=== PATIENT | male | born 1960 | race Hispanic/Latino ===

== ENCOUNTER 2024-06-27 07:12 | Day surgery (SDC) | payer MEDICAID ==
[2024-06-25 08:49] VITALS: BP 152/77; PULSE 52; RESP 14; TEMP 98.2
[2024-06-25 09:14] LABS: BASOPHILS # (AUTO) 0.02 K/uL (0.00-0.20); BASOPHILS % (AUTO) 0.3 % (0.0-5.0); EOSINOPHILS # (AUTO) 0.13 K/uL (0.00-0.70); HEMATOCRIT 46.8 % (42-54); IMMATURE GRANULOCYTE ABSOLUTE 0.02 K/uL (0-1); LYMPHOCYTES # (AUTO) 1.6 K/uL (1.0-4.8); LYMPHOCYTES % (AUTO) 23.6 % (21.0-51.0); MEAN CORPUSCULAR HEMOGLOBIN 32.1 pg (27.0-33.0); MEAN CORPUSCULAR HGB CONC 34.2 g/dL (32.0-36.0); MEAN CORPUSCULAR VOLUME 93.8 fL (79-99); MONOCYTES # (AUTO) 0.7 K/uL (0.1-1.0); MONOCYTES % (AUTO) 10.2 % (3.0-13.0); NEUTROPHILS # (AUTO) 4.2 K/uL (1.8-7.7); NEUTROPHILS % (AUTO) 63.6 % (40.0-77.0); PLATELET COUNT (AUTO) 126 K/uL (130-400); RED BLOOD CELL COUNT(AUTO) 4.99 MIL/uL (4.50-6.20); RED CELL DISTRIBUTION WIDTH 11.9 % (11.0-15.5); WHITE BLOOD COUNT (AUTO) 6.6 K/uL (4.8-10.8)
[2024-06-25 09:20] LABS: CREATININE 0.8 mg/dL (0.5-1.3)
[2024-06-25 09:26] LABS: INR 0.97 (0.85-1.15); PROTHROMBIN TIME 10.9 SEC (9.6-11.6)
[2024-06-25 09:27] LABS: PARTIAL THROMBOPLASTIN TIME 28.2 SEC (26.3-35.5)
--- NOTE | 2024-06-25 09:30 | EKG ---
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
[2024-06-25 10:12] LABS: B-TYPE NATRIURETIC PEPTIDE 29 pg/mL (0-100)
--- NOTE | 2024-06-25 12:56 | HMCIMG ---
CHEST 1VW REASON: PRE OP COMPARISON: None. FINDINGS: Single view of the chest was obtained. Lungs are clear. Heart size is normal. There is no pulmonary vascular congestion. Mediastinum and bony thorax appear unremarkable. IMPRESSION: 1. Normal single view chest x-ray.
[2024-06-27] VITALS (9 sets, daily range): BP systolic 133–156; BP diastolic 74–82; PULSE 54–69; RESP 13–18; TEMP 97
[~2024-06-27] VITALS: Ht 172.7 cm; Wt 89.2 kg
[~2024-06-27 07:12] MED LIST: ALLO100T PO; ATOR10 PO; CLOP75TA32 PO; FAMO40TA7 PO; ISOS60TA77 PO; LOSA50TA64 PO; LUMA42CA PO; NITR0.4T50 SL; OMEP40CA21 PO; TAMS-1 PO; UBID1CAP56 PO
[2024-06-27] MEDS: 0.9%NACL 1000ML 1,000 ML IV SCH (08:04)
[2024-06-27] MEDS ORDERED: LIDOCAINE HCL 400MG/20ML VIAL ONE (09:30)
[2024-06-27] MEDS ORDERED: IOHEXOL 350 MG/ML 100ML INFUS..BTL IV ONE ×2 (09:30→10:42)
[2024-06-27] MEDS ORDERED: HEParin-NS 1,000 UNIT/500 ML 1,000 ML IV ONE (09:30)
[2024-06-27] MEDS ORDERED: HEParin 10,000 UNIT/10ML (1,000 UNIT/ML) VIAL ONE (09:30)
[2024-06-27] MEDS ORDERED: VERAPAMIL HCL 2.5 MG/ML VIAL ONE (09:30)
[2024-06-27] MEDS ORDERED: NITROGLYCERIN 50MG VIAL ONE (09:31)
[2024-06-27] MEDS ORDERED: FENTanyl CITRate PF 50 MCG/1 ML 2ML VIAL ONE ×2 (09:46→11:20)
[2024-06-27] MEDS ORDERED: MIDAZOLAM HCL 1 MG/ML 2ML VIAL ONE ×2 (09:46→10:49)
[2024-06-27] MEDS ORDERED: ATROPINE 1MG SYG IVP ONE (10:27)
[2024-06-27] MEDS ORDERED: HEParin-NS 1,000 UNIT/500 ML 500 ML IV ONE (10:42)
[2024-06-27] MEDS ORDERED: ASPIRIN 325MG EC TAB PO ONE (11:34)
--- NOTE | 2024-06-27 11:54 | PRN ---
Cath Procedure Report CATH PROCEDURE REPORT CARDIAC CATHETERIZATION REPORT Date of Service: Jun 27, 2024 PROCEDURE: Left heart catheterization with selective right and left coronary angiography Instantaneous fractional flow reserve measurement of the left anterior descending artery Percutaneous transluminal coronary angioplasty to the mid left anterior descending artery with use of 3.25 x 12 mm Euphora compliant balloon. Unable to advance shockwave balloon for lithotripsy. Unable to gain adequate luminal expansion to proceed with stenting. Conscious sedation. INDICATION: Abnormal Coronary CT angiography WATCH TECHNICIAN: Samantha Borja DO DESCRIPTION OF PROCEDURE: Patient was prepped and draped in sterile fashion. Timeout was performed. Consultation administered by independent qualified [employer] Artistic Director RN under my direct supervision. No complications secondary to anesthesia. Right wrist was prepped and draped in sterile fashion. 1% lidocaine was used at the subcutaneous tissues. Right radial artery was accessed on first attempt under ultrasound guidance with placement of 6 [place] Islander hydrophilic short sheath. Vasodilatory cocktail of 2.5 mg of verapamil and 200 mcg of nitroglycerin was administered intra-arterially. Over an 035 J-wire, a 6 [place] Islander JR4 catheter was advanced into the ascending aorta and used to selectively engage right coronary artery and multiple angiographic views were taken. The catheter was then exchanged for a JL 3.5 diagnostic catheter which was used to selectively engage the left coronary artery and multiple angiographic views were taken. Then, we proceeded with intervention to the mid left anterior descending artery stenosis. 7 units/kg of heparin was given via peripheral IV and ACT was monitored throughout the procedure with additional heparin given to maintain a therapeutic goal ACT of greater than 250. Using a JL 3.5 guide catheter, the left main coronary artery was engaged. iFR was performed of the proximal and mid LAD. The proximal LAD was negative at 0.97, mid LAD stenosis at the takeoff of the diagonal 0.84. As I was unable to advance IFR wire to the distal LAD, an 014 x 300 cm run-through wire was advanced in body fashion to the distal LAD followed by removal of the IFR wire. There was difficulty advancing the balloon for predilation, therefore 6 [place] Islander guide liner was utilized. Predilatation was performed of the stenosis with a 3.25 x 12 mm Euphora compliant balloon. the calcified stenosis did not yield completely, therefore attempts were made to advance a 3.0 mm shockwave balloon however unsuccessful due to poor guide and guide liner support, unable to advance to the mid portion of the stenosis. I then proceeded with attempts to place a 014 whisper wire and yesica wire fashion with the run-through with the guide liner catheter over both, however also unsuccessful advancing the 3.0 mm shockwave balloon as well as a 3.0 x 12 mm noncompliant balloon. At this point, due to duration of the procedure, contrast utilized, and overall poor diet and GuideLiner support, decision was made to abort the procedure and bring the patient back for repeat stage planned intervention to the mid LAD stenosis using groin approach and different catheters and wires. Hemostasis achieved at the radial artery with use of t ransradial band and patient tolerated the procedure well without immediate complications. FINDINGS: Left main: Trifurcation into left anterior descending, bifurcating ramus intermedius left circumflex. Ostial 10-20% luminal narrowing. Left anterior descending: Ostial stenosis measuring 40% angiographically, confirmed hemodynamically insignificant by instantaneous fractional flow reserve measurement of 0.97. The proximal LAD is calcified and tortuous, narrowing down to mid LAD 80% eccentric stenosis at the takeoff of the 1st diagonal, confirmed positive by IFR measurement of 0.84. The stenosis does involve some plaque involving the ostium of the 1st diagonal branch with the associated narrowing of proximally 30%. First diagonal branch measures proximally 2.25 2.5 caliber. Following balloon angioplasty of the mid left anterior descending stenosis, there appears to be more pronounced plaque shift into the 1st diagonal, however it is patent with ANDREIA 3 flow. Ramus intermedius: Small caliber vessel with ostial stenosis of 70% as it takes off the main, with high bifurcation. Both branches measure approximately 1 mm caliber and supplies small amount of myocardium. Left circumflex: Left dominant coronary system. OM1 has 10-20% stenosis proximally, bifurcating distally into a larger superior and smaller inferior branch. Vessel is tortuous distally. LPDA is angiographically free of disease, however measuring small proximally 1 mm and tortuous distally. Right coronary artery: Nondominant vessel with a 50-60% stenosis proximally. Marginal 1 branch measures diameter is angiographically. HEMODYNAMICS: Opening aortic pressure 109/51 with a mean of 70 Left ventricular pressure 132 mmHg Left ventricular end-diastolic pressure 9 mmHg Less than 10 mmHg gradient across the aortic valve on pullback. SUMMARY: Heavily calcified mid left left anterior descending stenosis status post t reatment balloon angioplasty, unable to advance shockwave lithotripsy balloon therefore unable to gain adequate luminal expansion to proceed with stenting. Recommend patient return for staged re-attempt at intervention via femoral approach. Can consider use of EBU versus XB guide for improved guide support, and after gaining distal positioning with the wire, exchange for higher support coronary wire such as iron man, then proceed with CSI atherectomy versus shockwave lithotripsy prior to definitive treatment with stenting. SAMANTHA BORJA DO Jun 27, 2024 11:54
[2024-06-27] MEDS ORDERED: 0.9%NACL 1000ML 1,000 ML IV SCH (12:00)
--- NOTE | 2024-06-27 13:19 | NUR ---
VAS BAND REMOVED AT THIS TIME RIGHT RADIAL SITE ASYMPTOMATIC. SITE DRESSED WITH GAUZE AND TEGADERM
== END 2024-06-27 14:03 | disposition home or self-care (01) ==
LOC: DAH 07:12
PROVIDERS: ATTEND Internal Medicine
DX: R94.39 Abnormal result of other cardiovascular function study (principal); I25.118 Atherosclerotic heart disease of native coronary artery with other forms of angina pectoris; I10 Essential (primary) hypertension; J44.9 Chronic obstructive pulmonary disease, unspecified; K21.9 Gastro-esophageal reflux disease without esophagitis; E78.5 Hyperlipidemia, unspecified; E03.9 Hypothyroidism, unspecified; Z79.01 Long term (current) use of anticoagulants; Z88.6 Allergy status to analgesic agent; Z82.49 Family history of ischemic heart disease and other diseases of the circulatory system; Z79.899 Other long term (current) drug therapy
CPT/HCPCS: 80048; 83880; 85025; 85610; 85730; 36415 ×2; 71045; 93005; 93458; 92920; 93571; 85347 ×2; A4223 ×3; A4221; C1769 ×4; C1887 ×2; C1725 ×2; C1894; A4649; Q9965 ×2; J3010 ×2; J3490 ×3; J7030; J1644 ×3; J2250 ×2; Q9967; A4215 ×2; A4222; A4663; A4216; A4606; 96360; 96361; 99156; 99157; C1761; J0461

== ENCOUNTER 2024-07-28 08:06 | Day surgery (SDC) | payer MEDICAID ==
[2024-07-24 12:12] VITALS: BP 137/65; PULSE 72; RESP 14; TEMP 98.1
[2024-07-24 12:33] LABS: BASOPHILS # (AUTO) 0.03 K/uL (0.00-0.20); BASOPHILS % (AUTO) 0.3 % (0.0-5.0); EOSINOPHILS # (AUTO) 0.11 K/uL (0.00-0.70); EOSINOPHILS % (AUTO) 1.2 % (0.0-8.0); HEMATOCRIT 45.6 % (42-54); IMMATURE GRANULOCYTE ABSOLUTE 0.03 K/uL (0-1); LYMPHOCYTES % (AUTO) 22.5 % (21.0-51.0); MEAN CORPUSCULAR HEMOGLOBIN 31.9 pg (27.0-33.0); MEAN CORPUSCULAR VOLUME 93.8 fL (79-99); MONOCYTES # (AUTO) 0.7 K/uL (0.1-1.0); NEUTROPHILS % (AUTO) 67.7 % (40.0-77.0); PLATELET COUNT (AUTO) 146 K/uL (130-400); RED BLOOD CELL COUNT(AUTO) 4.86 MIL/uL (4.50-6.20); RED CELL DISTRIBUTION WIDTH 12.5 % (11.0-15.5); WHITE BLOOD COUNT (AUTO) 8.9 K/uL (4.8-10.8)
[2024-07-24 12:43] LABS: CREATININE 0.7 mg/dL (0.5-1.3); INR 0.94 (0.85-1.15); POTASSIUM 4.6 mmol/L (3.5-5.1); PROTHROMBIN TIME 10.6 SEC (9.6-11.6)
[2024-07-24 12:44] LABS: PARTIAL THROMBOPLASTIN TIME 27.1 SEC (26.3-35.5)
[2024-07-24 12:56] LABS: B-TYPE NATRIURETIC PEPTIDE 21 pg/mL (0-100)
--- NOTE | 2024-07-24 13:25 | HMCIMG ---
CHEST 1VW HISTORY: Preop COMPARISON: 06/25/2024 FINDINGS: A frontal projection of the chest was obtained. Mild bilateral pulmonary infiltrates are seen. The heart is normal in size. Prominent interstitial markings are seen. No evidence of aortic calcification is seen. IMPRESSION: 1. Mild bilateral pulmonary infiltrates.
--- NOTE | 2024-07-24 14:05 | NUR ---
report dr wolf informed pt reported he was dx with small fx to lumbar area x2 on december 2023 and is receiving prolia, no expected sx pending and pt stated he is able to lay flat without any problems. ok to proceed Addendum: 07/24/24 at 1517 by TIAN ROOT RN RN charted on wrong patient
--- NOTE | 2024-07-24 14:42 | EKG ---
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
--- NOTE | 2024-07-25 13:50 | NUR ---
report cxr reported to dr donald by andres schmitt rn. ok to proceed
[2024-07-28] VITALS (8 sets, daily range): BP systolic 108–156; BP diastolic 59–80; PULSE 58–82; RESP 10–19; TEMP 96.9–97
[~2024-07-28] VITALS: Ht 172.7 cm; Wt 89.9 kg
[~2024-07-28 08:06] MED LIST changes: +ASPI-1197 PO; -CLOP75TA32 PO; -UBID1CAP56 PO
--- NOTE | 2024-07-28 08:58 | NUR ---
Called [facility] for H&P to be faxed over cause there in no H&P in chart. [facility] has yet to fax H&P over. [employer]oy paged again to fax again.
--- NOTE | 2024-07-28 09:16 | NUR ---
H&P for pt recieved from [facility] at this time.
[2024-07-28] MEDS ORDERED: IOHEXOL 350 MG/ML 100ML INFUS..BTL IV ONE (10:58)
[2024-07-28] MEDS ORDERED: NITROGLYCERIN 50MG VIAL ONE (10:58)
[2024-07-28] MEDS ORDERED: LIDOCAINE HCL 400MG/20ML VIAL ONE (10:58)
[2024-07-28] MEDS ORDERED: VERAPAMIL HCL 2.5 MG/ML VIAL ONE (10:58)
[2024-07-28] MEDS ORDERED: HEParin 10,000 UNIT/10ML (1,000 UNIT/ML) VIAL ONE (10:58)
[2024-07-28] MEDS ORDERED: HEParin-NS 1,000 UNIT/500 ML 1,000 ML IV ONE (10:58)
[2024-07-28] MEDS ORDERED: MIDAZOLAM HCL 1 MG/ML 2ML VIAL ONE ×2 (11:16→12:55)
[2024-07-28] MEDS ORDERED: FENTanyl CITRate PF 50 MCG/1 ML 2ML VIAL ONE ×2 (11:16→13:02)
[2024-07-28] MEDS ORDERED: ATROPINE 1MG SYG IVP ONE (11:49)
[2024-07-28] MEDS ORDERED: HEParin-NS 1,000 UNIT/500 ML 500 ML IV ONE (13:07)
[2024-07-28] MEDS ORDERED: DiphenhydrAMINE HCL 50 MG/ML VIAL ONE (13:45)
[2024-07-28] MEDS ORDERED: IOHEXOL-350 75 ML VIAL IV ONE (13:48)
[2024-07-28] MEDS ORDERED: cloPIDOgrel 300MG TAB ONE (14:16)
[2024-07-28] MEDS ORDERED: acetaMINOPHEN WITH coDEINE 1 TAB TAB PO PRN (14:30)
[2024-07-28] MEDS ORDERED: hydrALAZine 20MG/ML VIAL IV PRN (14:30)
[2024-07-28] MEDS ORDERED: 0.9%NACL 1000ML 1,000 ML IV SCH (14:30)
--- NOTE | 2024-07-28 14:37 | PRN ---
Cath Procedure Report CATH PROCEDURE REPORT CARDIAC CATHETERIZATION REPORT Date of Service: Jul 28, 2024 PROCEDURE: Selective coronary angiography of left coronary artery Percutaneous intervention to proximal to mid left anterior descending artery with 1.25 CSI orbital atherectomy, Shockwave intravascular lithotripsy, followed by placement of two overlapping stents (Xience SkyPoint 3.5 x 38 mm distally post dilated to 3.56 and a Xience SkyPoint 3.5 mm x 15 mm distally post dilated to 3.63) with post deployment intravascular ultrasound interrogation of the left anterior descending artery and left main coronary artery. GRAPHITE DISK ASSEMBLER: Samantha Borja DO INDICATION: Known mid left anterior descending artery stenosis of 70% by prior angiography. Chest pain despite antianginal therapy. DESCRIPTION OF PROCEDURE: Patient was prepped and draped in sterile fashion. Time-out was performed. Right common femoral artery was interrogated using ultrasound and fluoroscopic guidance and placement of seven Indian short sheath using micropuncture technique. A seven Indian EBU 3.5 guide catheter was advanced and used to selectively engage left coronary artery. 70 units/kg of heparin was given via peripheral IV and ACT was monitored routinely throughout the procedure with the additional heparin given for goal therapeutic ACT of greater than 250. 014 whisper wire was advanced down to the distal left anterior descending artery, exchanged for CSI wire using trailblazer microcatheter. Multiple passes were made to the proximal and mid left anterior descending stenoses. We utilized a seven Indian GuideLiner for additional support. We performed balloon dilatation of the stenoses using a 3.0 x 20 mm compliant balloon, followed by 3.0 x 15 mm noncompliant balloon without adequate expansion of the lesion despite deploying the balloon to rated burst pressure, therefore we proceeded with shockwave intravascular lithotripsy. I utilized balloon assisted tracking to advance the GuideLiner to the takeoff of the diagonal, followed by advancement of the 3.0 x 12 mm shockwave balloon. Intravascular lithotripsy was performed the entirety of the proximal to mid left anterior descending artery. Then, we proceeded with placement of stents, distally a Xience jose 0.3 0.5 x 38 mm post dilated to 3.56 mm caliber, followed by a Xience jose 0.3 0.5 mm x 15 mm stent proximally in overlapping fashion post dilated to 3.63 mm caliber, with the overlap post dilated with the stent balloon. Post deployment angiography revealed adequate expansion, slight distal step-down, and no dissection or thrombus. Adequate expansion of the stent and positioning was confirmed by intravascular ultrasound interrogation of the left anterior descending artery and left main. Patient tolerated the procedure well without immediate complications. Angiography was performed through the sheath side port and the arteriotomy site was closed with a six Indian Perclose. FINDINGS: Please see prior angiography report for full diagnostic details, however no nondominant right coronary artery. The left main is short, bifurcating into the left anterior descending and left circumflex arteries. The left circumflex has proximal 20% stenosis. There is a small caliber high takeoff OM, followed by larger caliber OM2 and OM3. Has a left dominant coronary system. LPDA is angiographically free of disease. Large caliber OM1 with proximal 20% stenosis. The left anterior descending artery is heavily calcified in the proximal to midportion. Ostial, there is 30% stenosis, previously interrogated in confirm negative by IFR measurement during diagnostic angiography. There are tandem significant stenoses in the proximal to mid left anterior descending artery, a 70-80% stenosis before the takeoff of the 1st diagonal, followed by 80-90% hazy stenosis just after the takeoff of the 1st diagonal. First diagonal is large caliber and displaced 20-30% ostial stenosis. At the takeoff of the 2nd diagonal, there is a heavily calcified focal stenosis of 30-40%. The apical left anterior descending artery has a long segment of 70-80% stenosis. The left anterior descending artery then wraps around the apex. Prior to intervention, there is ANDREIA two flow, improved to ANDREIA three flow post stenting. SUMMARY: Heavily calcified prox to mid LAD. Tandem stenoses of 70-80%, followed by 80- 90% status post percutaneous transluminal coronary angioplasty using multimodal approach including CSI orbital atherectomy, shockwave lithotripsy, and placement of two overlapping stents, confirmed adequate expansion and positioning with intravascular ultrasound. SAMANTHA BORJA DO Jul 28, 2024 14:37
[2024-07-28] MEDS ORDERED: CLOP75TA32 PO (16:21)
== END 2024-07-28 17:00 ==
LOC: DAH 08:06
PROVIDERS: ATTEND Internal Medicine
DX: I25.118 Atherosclerotic heart disease of native coronary artery with other forms of angina pectoris (principal); I10 Essential (primary) hypertension; I36.1 Nonrheumatic tricuspid (valve) insufficiency; I25.84 Coronary atherosclerosis due to calcified coronary lesion; E78.5 Hyperlipidemia, unspecified; E03.9 Hypothyroidism, unspecified; F41.9 Anxiety disorder, unspecified; G62.9 Polyneuropathy, unspecified; E66.9 Obesity, unspecified; J44.9 Chronic obstructive pulmonary disease, unspecified; K21.9 Gastro-esophageal reflux disease without esophagitis; Z79.899 Other long term (current) drug therapy; Z79.82 Long term (current) use of aspirin; Z82.49 Family history of ischemic heart disease and other diseases of the circulatory system; Z68.30 Body mass index [BMI] 30.0-30.9, adult; Z88.8 Allergy status to other drugs, medicaments and biological substances; Z79.01 Long term (current) use of anticoagulants
CPT/HCPCS: 80048; 83880; 85025; 85610; 85730; 36415; 71045; 93005; 93454; 92978; 92979; 92972; 85347 ×4; C1761 ×2; A4223 ×3; Q9965 ×2; C1894 ×3; C1769 ×3; C1725 ×2; C1760; C1887 ×4; C1724; C1753; C1874 ×2; J1200; J3010 ×2; J3490 ×2; J1644 ×3; J2250 ×2; Q9967; A4215; A4222; A4221; A4663; A4216; A4606; C9602; 92924; 96360; 99156; 99157; J0461